=== PATIENT | male | born 1980 | race Two or more races ===

== ENCOUNTER 2023-01-26 22:12 | Emergency (ER) | payer OTHER ==
[~2023-01-26] VITALS: Ht 182.9 cm; Wt 73.0 kg
[2023-01-26 22:37] VITALS: BP 145/97; PULSE 123; RESP 18; TEMP 98.4; O2SAT 95
== END 2023-01-26 23:01 | disposition left against medical advice (07) ==
LOC: ER 22:12
DX: Z53.21 Procedure and treatment not carried out due to patient leaving prior to being seen by health care provider (principal)
CPT/HCPCS: 99281